=== PATIENT | male | born 1940 | race Caucasian/White ===

== ENCOUNTER 2019-07-11 16:41 | Outpatient (CLI) | payer MEDICARE | END 2019-07-11 16:42 | disposition critical access hospital (66) | LOC: EMS 16:41 | PROVIDERS: ATTEND Surgery | DX: R53.1 Weakness (principal); R42 Dizziness and giddiness | CPT/HCPCS: A0425; A0427 ==

== ENCOUNTER 2019-07-11 16:58 | Inpatient (IN) | payer MEDICARE ==
--- NOTE | 2019-07-11 17:09 | ED Physician Documentation ---
PD HPI ALTERED MENTAL STATUS - Stated complaint Stated Complaint: MED REACTION - History obtained from History obtained from: Patient, EMS (Some the history is limited because the patient is mildly altered. I did get some history from paramedics as well. Reportedly 3 days ago he was put on Xanax. He is been on it before without issue, but it spent a long time. He does not know what dose he was put on. He does not know why he was put back on it. He was taking it scheduled, not as needed. Starting her and then he started to become altered with slurred speech. No reported fevers. The dose was cut in half by his significant other who is not at the hospital on his arrival. That did not improve his mental status.) Review of Systems Constitutional: denies: Fever, Chills Cardiac: denies: Chest pain / pressure, Palpitations Respiratory: denies: Dyspnea, Cough GI: reports: Constipation (Last BM yesterday). denies: Abdominal Pain, Nausea, Vomiting PD PAST MEDICAL HISTORY - Past Medical History Past Medical History: Yes Cardiovascular: Other (pacemaker) - Present Medications Home Medications: Ambulatory Orders Medication Instructions Recorded Confirmed ALPRAZolam [Alprazolam] 1 mg PO 07/11/19 07/11/19 - Allergies Allergies/Adverse Reactions: Allergies Allergy/AdvReac Type Severity Reaction Status Date / Time No Known Drug Allergies Allergy Verified 07/11/19 17:09 - Living Situation Living Arrangement: reports: At home - Social History Does the pt drink ETOH?: No Does the pt have substance abuse?: No - Family History Family history: reports: Non contributory PD ED PE NORMAL - Vitals Vital signs reviewed: Yes - General General: No acute distress, Well developed/nourished, Other (Slow slurred speech, mildly confused) - HEENT HEENT: Other (There is just a very vague suggestion that his right eye does not abduct quite right but he denies diplopia on rightward gaze. No obvious cranial neuropathy.) - Neck Neck: Supple, no meningeal sign, No bony TTP - Cardiac Cardiac: RRR, No murmur - Respiratory Respiratory: No respiratory distress, Clear bilaterally - Abdomen Abdomen: Soft, Non tender - Back Back: No CVA TTP, No spinal TTP - Derm Derm: Normal color, Warm and dry - Extremities Extremities: No edema, No calf tenderness / cord - Neuro Neuro: paleologist 2-12 intact Eye Opening: Spontaneous Motor: Obeys Commands Verbal: Confused GCS Score: 14 - Psych Psych: Normal mood, Normal affect Results - Vitals Vitals: Vital Signs - 24 hr 07/11/19 07/11/19 07/11/19 17:02 17:58 18:07 Temperature 36.2 C L Heart Rate 75 55 L 55 L Respiratory 18 13 14 Rate Blood Pressure 129/77 132/72 H 116/68 O2 Saturation 98 95 95 07/11/19 19:04 Temperature 36.7 C Heart Rate 56 L Respiratory 15 Rate Blood Pressure 126/79 O2 Saturation 98 Oxygen O2 Source Room air - Labs Labs: Laboratory Tests 07/11/19 07/11/19 07/11/19 17:17 17:17 17:17 WBC 6.5 RBC 4.40 L Hgb 14.4 Hct 42.9 MCV 97.5 H MCH 32.7 H MCHC 33.6 RDW 12.2 Plt Count 162 MPV 9.6 Neut # (Auto) 4.8 Lymph # (Auto) 1.1 L Mchenry # (Auto) 0.5 Eos # (Auto) 0.1 Baso # (Auto) 0.0 Absolute Nucleated RBC 0.00 Nucleated RBC % 0.0 Sodium 142 Potassium 4.4 Chloride 104 Carbon Dioxide 29 Anion Gap 9.0 BUN 22 H Creatinine 1.3 H Estimated GFR (MDRD) 53 L Glucose 132 H Calcium 8.7 Total Bilirubin 0.5 AST 19 ALT 15 Alkaline Phosphatase 52 Total Creatine Kinase 59 Total Protein 6.5 L Albumin 3.5 Globulin 3.0 Albumin/Globulin Ratio 1.2 Lipase 28 TSH 1.74 Salicylates < 6.0 Urine Opiates Screen Ur Oxycodone Screen Urine Methadone Screen Ur Propoxyphene Screen Acetaminophen < 10 L Ur Barbiturates Screen Ur Tricyclics Screen Ur Phencyclidine Scrn Ur Amphetamine Screen U Methamphetamines Scrn U Benzodiazepines Scrn Urine Cocaine Screen U Cannabinoids Screen Ethyl Alcohol < 5.0 07/11/19 19:02 WBC RBC Hgb Hct MCV MCH MCHC RDW Plt Count MPV Neut # (Auto) Lymph # (Auto) Mchenry # (Auto) Eos # (Auto) Baso # (Auto) Absolute Nucleated RBC Nucleated RBC % Sodium Potassium Chloride Carbon Dioxide Anion Gap BUN Creatinine Estimated GFR (MDRD) Glucose Calcium Total Bilirubin AST ALT Alkaline Phosphatase Total Creatine Kinase Total Protein Albumin Globulin Albumin/Globulin Ratio Lipase TSH Salicylates Urine Opiates Screen NEGATIVE Ur Oxycodone Screen NEGATIVE Urine Methadone Screen NEGATIVE Ur Propoxyphene Screen NEGATIVE Acetaminophen Ur Barbiturates Screen NEGATIVE Ur Tricyclics Screen NEGATIVE Ur Phencyclidine Scrn NEGATIVE Ur Amphetamine Screen NEGATIVE U Methamphetamines Scrn NEGATIVE U Benzodiazepines Scrn POSITIVE H Urine Cocaine Screen NEGATIVE U Cannabinoids Screen NEGATIVE Ethyl Alcohol - Rads (name of study) CT Head Radiology: EMP read contemporaneously (normal) PD MEDICAL DECISION MAKING - ED course ED course: 78-year-old gentleman presents by ambulance for altered mental status. It was temporally related to restarting Xanax and this is probably causative. The remainder of his ED work-up was negative. He is persistently altered, and will require a night in the hospital to metabolize and to assess for other causes. I spoke with Dr. Leung for same at 7:30 PM. Departure - Departure Disposition: ED Place in Observation Clinical Impression: Altered mental status Qualifiers: Altered mental status type: delirium Qualified Code(s): R41.0 - Disorientation, unspecified Condition: Fair
[2019-07-11 17:22] LABS: BASOPHILS % (AUTO) 0.3 %; EOSINOPHILS # (AUTO) 0.1 10^3/uL (0.0-0.7); EOSINOPHILS % (AUTO) 1.7 %; HGB - HEMOGLOBIN 14.4 g/dL (14.0-18.0); LYMPHOCYTES # (AUTO) 1.1 10^3/uL (1.5-3.5); LYMPHOCYTES % (AUTO) 16.2 %; MEAN CORPUSCULAR HEMOGLOBIN 32.7 pg (27.0-31.0); MEAN CORPUSCULAR HGB CONC 33.6 g/dL (32.0-36.0); MEAN CORPUSCULAR VOLUME 97.5 fL (80.0-94.0); MEAN PLATELET VOLUME 9.6 fL (7.4-11.4); MONOCYTES # (AUTO) 0.5 10^3/uL (0.0-1.0); MONOCYTES % (AUTO) 7.4 %; NEUTROPHILS # (AUTO) 4.8 10^3/uL (1.5-6.6); NEUTROPHILS % (AUTO) 73.6 %; PLT - PLATELET COUNT 162 10^3/uL (130-450); RED CELL DISTRIBUTION WIDTH 12.2 % (12.0-15.0); WHITE BLOOD COUNT 6.5 x10^3/uL (4.8-10.8)
[2019-07-11 17:35] LABS: ACETAMINOPHEN < 10 ug/mL (10-30); ALBUMIN 3.5 g/dL (3.2-5.5); ALBUMIN/GLOBULIN RATIO 1.2 (1.0-2.2); ALKALINE PHOSPHATASE 52 IU/L (42-121); ALT ALANINE AMINOTRANSFERASE 15 IU/L (10-60); AST ASPARTATE AMINOTRANSFERASE 19 IU/L (10-42); BILIRUBIN,TOTAL 0.5 mg/dL (0.2-1.0); BUN - BLOOD UREA NITROGEN 22 mg/dL (6-20); CALCIUM 8.7 mg/dL (8.5-10.3); CARBON DIOXIDE - CO2 29 mmol/L (21-32); CHLORIDE 104 mmol/L (101-111); CK- CREATINE KINASE 59 IU/L (22-269); CREATININE 1.3 mg/dL (0.6-1.2); GFR - MDRD 53 (>89); GLUCOSE 132 mg/dL (70-100); LIPASE 28 U/L (22-51); SALICYLATE < 6.0 mg/dL; SODIUM 142 mmol/L (135-145); TOTAL PROTEIN 6.5 g/dL (6.7-8.2)
[2019-07-11] MEDS ORDERED: SODIUM CHLORIDE 0.9% 1,000 ML IV ONE (17:40)
--- NOTE | 2019-07-11 17:49 | CT Report ---
Reason: altered Procedure Date: 07/11/2019 Accession Number: [id number] / [id number] Procedure: CT - HEAD WO CPT Code: FULL RESULT: EXAM: CT HEAD EXAM DATE: 07/11/2019 05:33 PM. CLINICAL HISTORY: Altered. COMPARISON: None. TECHNIQUE: Multiaxial CT images were obtained from the foramen magnum to the vertex. Reformats: Sagittal and coronal. IV contrast: None. In accordance with CT protocol optimization, one or more of the following dose reduction techniques were utilized for this exam: automated exposure control, adjustment of mA and/or KV based on patient size, or use of iterative reconstructive technique. FINDINGS: Parenchyma: No intraparenchymal hemorrhage. No evidence of mass, midline shift, or CT findings of infarction. Tovar-white differentiation is distinct. Extraaxial Spaces: Normal for age. No subdural or epidural collections identified. Ventricles: Normal in size and position. Sinuses and Orbits: Imaged paranasal sinuses, orbits, and mastoids show no significant abnormality. Bones: No evidence of fracture or calvarial defect. Other: None. IMPRESSION: No acute intracranial abnormality. RADIA
[2019-07-11 19:08] LABS: MUDS CUTOFF CONCENTRATIONS CUTOFF CONC BELOW:
[2019-07-11 19:20] LABS: AMPHETAMINE SCREEN,URINE NEGATIVE (NEGATIVE); BENZODIAZEPINES SCREEN, URINE POSITIVE (NEGATIVE); COCAINE SCREEN URINE NEGATIVE (NEGATIVE); METHAMPHETAMINES SCREEN, URINE NEGATIVE (NEGATIVE); OPIATE SCREEN, URINE NEGATIVE (NEGATIVE)
[2019-07-11 19:21] LABS: METHADONE SCREEN, URINE NEGATIVE (NEGATIVE); OXYCODONE SCREEN, URINE NEGATIVE (NEGATIVE); PROPOXYPHENE SCREEN, URINE NEGATIVE (NEGATIVE); TRICYCLIC ANTIDEPRESSANT,URINE NEGATIVE (NEGATIVE)
[2019-07-11] MEDS ORDERED: ACETAMINOPHEN 325 MG TABLET PO PRN (20:05)
[2019-07-11 20:21] LABS: INR 1.2 (0.8-1.2); PT - PROTHROMBIN TIME 13.1 secs (9.9-12.6)
[2019-07-11] MEDS ORDERED: ASPIRIN 325 MG TABLET PO SCH (21:00)
[2019-07-11] MEDS: SODIUM CHLORIDE 0.9% 1,000 ML IV SCH (21:14)
[2019-07-11] MEDS: SODIUM CHLORIDE FLUSH 0.9% 10 ML SYRINGE IVP PRN (21:14)
[2019-07-11] MEDS: HEPARIN 5,000 UNIT/ML VIAL SUBQ SCH (21:24)
[2019-07-11] MEDS: ATORVASTATIN 40 MG TABLET PO SCH (21:27)
--- NOTE | 2019-07-11 22:14 | HISTORY & PHYSICAL EXAMINATION ---
Chief Complaint - Chief Complaint Chief Complaint: Confusion History of Present Illness - Admitted From Admitted From:: Home - History Obtained From Records Reviewed: Yes History obtained from: Patient, ER Physician Exam Limitations: Change in mental status - History of Present Illness HPI Comment/Other: This is a 78 year old male with unknown past medical history except for the fact that he has a pacemaker who presents from home via EMS because of confusion over the last couple of days. History is limited from the patient due to his change in mental status. He states he was started on Xanax three days ago and since th at time he has felt confused and has had slurred speech. His significant other decreased the dose to half without improvement in his mental status. The patient is not sure why he was started on Xanax but states he was on it years ago without problems at that time. He denies any complaints except for associated slurred speech. He also complains of weakness. Reports no fevers, numbness, chest pain, dyspnea. He does report poor oral intake over the last few days. He reports taking a few other medications but cannot recall what they are. He does not know his pharmacy. He does not know his medical history except for that he has a pacemaker that was placed about 5 years ago. He knows that the month is july and that yesterday was but he cannot recall the year. He tells me he lives an hour away but then when asked again, he states he is not sure and that he is confused at this time. He does not have his ID on him. In the ER, his vitals were unremarkable. Labs revealed an elevated creatinine of 1.3. Urine toxicology was positive for benzodiazepines. Alcohol, tylenol, and salicylates were negative. CT head in the ER was unremarkable. He will be admitted under observation for further management. History - Past Medical History Cardiovascular: reports: Other (Pacemaker in place) - Past Surgical History Cardiovascular: reports: Pacemaker - Family & Social History Family History Comment/Other: Denies a family history although unclear how accurate this is given his mental status change. Living arrangement: At home Living Situation: With spouse/s.o. Social History Notes: He reports living with his significant other (Kelly) and that he lives one hour away. When asked where Kelly lives, he states he is not sure and that she is currently moving. Meds/Allgy - Home Medications Home Medications: Ambulatory Orders Medication Instructions Recorded Confirmed ALPRAZolam [Alprazolam] 1 mg PO 07/11/19 07/11/19 - Allergies Allergies/Adverse Reactions: Allergies Allergy/AdvReac Type Severity Reaction Status Date / Time No Known Drug Allergies Allergy Verified 07/11/19 17:09 Review of Systems - Constitutional Constitutional: reports: Weakness, Poor appetite. denies: Fatigue, Fever, Chills - Eyes Eyes: denies: Vision loss, Dipolpia - Cardiovascular Cariovascular: denies: Chest pain - Respiratory Respiratory: denies: SOB at rest, SOB with exertion - Gastrointestinal Gastrointestinal: denies: Abdominal pain, Nausea, Vomiting - Neurological Neurological: reports: General weakness, Slurred speech, Other (Confusion). denies: Focal weakness, Numbness - All Other Systems All Other Systems: reports: Reviewed and negative - Other Findings Other Findings: He does have altered mental status and his ROS may not be accurate. Prior Level of Functionality: Reports being independent with ADL's. Exam - Vital Signs Reviewed Vital Signs: Yes Vital Signs: Vital Signs x48h Temp Pulse Pulse Resp BP BP Pulse Ox 07/11/19 20:36 36.6 C 60 15 136/77 H 99 07/11/19 20:02 68 18 130/81 H 97 07/11/19 19:04 36.7 C 56 L 15 126/79 98 07/11/19 18:07 55 L 14 116/68 95 07/11/19 17:58 55 L 13 132/72 H 95 07/11/19 17:02 36.2 C L 75 18 129/77 98 - Physical Exam General Appearance: positive: No acute distress, Alert Eyes Bilateral: positive: PERRL, Conjunctivae nml Respiratory: positive: No respiratory distress. negative: Wheezes, Rales, Rhonchi Cardiovascular: positive: Regular rate & rhythm, No murmur. negative: Systolic murmur, Diastolic murmur Abdomen: positive: Non-tender, No distention. negative: Guarding, Rebound Skin: positive: No rash, Warm, Dry Extremities: positive: Non-tender Neurologic/Psychiatric: positive: Motor nml, Sensation nml, Facial droop (Right sided facial droop.), Slurred/abnml speech, Other (Facial sensation in tact. No tongue deviation. 5/5 motor strength in all four extremities. No sesonary deficit.). negative: Disoriented to person, Disoriented to place, Disoriented to time Conclusion/Plan - Problem List (1) Altered mental status Conclusion/Plan: The etiology of his altered mental status may be the use of Xanax as his symptoms started after initiation of the drug. He does have slurred speech and slight right sided facial droop on exam so TIA/Stroke is also a differential. Rest of his workup has been unremarkable including labs and imaging. - Will administer 325mg Aspirin and Lipitor 80mg today as this may be a TIA/CVA - IV hydration - Hold Xanax and avoid medications that can cause further delirium - Ideally, we would obtain an MRI to rule out stroke but it appears his pacemaker is not MRI compatible - Will consider repeating a CT head tomorrow to evaluate for possible evidence of ischemic CVA - Neurochecks - Will attempt to obtain collateral information from significant other Qualifiers: Altered mental status type: delirium Qualified Code(s): R41.0 - Disorientation, unspecified (2) Acute kidney injury Conclusion/Plan: His creatinine is elevated at 1.3 and this may represent acute kidney injury or this could be his baseline as there are no prior labs to compare to. - Will hydrate with IV fluids - Check BMP in AM - Monitor urine output (3) Pacemaker Conclusion/Plan: He has a pacemaker in place ([employer] [id number]). The indication for the pacemaker is not clear and patient is unable to give history. Atrial paced on telemetry. - Monitor on telemetry - Lab Results Lab results reviewed: Yes Kenyon Bones: 07/11/19 17:17 07/11/19 17:17 - Diagnostic Imaging Results Diagnostic Imaging Results: positive: Final report reviewed - EKG Results EKG Interpreted Independently: Yes EKG Comparison: No prior EKG EKG Findings: Bradycardia without ST segment changes. Atrial paced rhythm on telemetry. Core Measures - Anticipated LOS I expect patient to be DC'd or transferred within 96 hours.: Yes - Issues Hospital Issues and Management Plan: Altered mental status. TIA/CVA workup. - DVT/VTE - Prophylaxis VTE/DVT Device ordered at admit?: Yes VTE/DVT Prophylaxis med ordered at admit?: Yes
[2019-07-12] MEDS: SODIUM CHLORIDE FLUSH 0.9% 10 ML SYRINGE IVP SCH ×3 (00:26→16:57)
[2019-07-12 05:25] LABS: BASOPHILS % (AUTO) 0.3 %; EOSINOPHILS # (AUTO) 0.2 10^3/uL (0.0-0.7); EOSINOPHILS % (AUTO) 2.2 %; LYMPHOCYTES # (AUTO) 1.4 10^3/uL (1.5-3.5); LYMPHOCYTES % (AUTO) 20.7 %; MEAN CORPUSCULAR HEMOGLOBIN 32.7 pg (27.0-31.0); MEAN CORPUSCULAR HGB CONC 33.5 g/dL (32.0-36.0); MEAN CORPUSCULAR VOLUME 97.5 fL (80.0-94.0); MEAN PLATELET VOLUME 9.9 fL (7.4-11.4); MONOCYTES # (AUTO) 0.7 10^3/uL (0.0-1.0); MONOCYTES % (AUTO) 10.8 %; NEUTROPHILS # (AUTO) 4.4 10^3/uL (1.5-6.6); NEUTROPHILS % (AUTO) 65.4 %; PLT - PLATELET COUNT 139 10^3/uL (130-450); RED BLOOD COUNT 3.98 10^6/uL (4.70-6.10); RED CELL DISTRIBUTION WIDTH 12.3 % (12.0-15.0); WHITE BLOOD COUNT 6.7 x10^3/uL (4.8-10.8)
[2019-07-12 05:39] LABS: CALCIUM 8.3 mg/dL (8.5-10.3); CREATININE 1.3 mg/dL (0.6-1.2); MAGNESIUM 2.1 mg/dL (1.7-2.8); PHOSPHORUS 3.1 mg/dL (2.5-4.6)
[2019-07-12] MEDS: SODIUM CHLORIDE 0.9% 1,000 ML IV SCH ×2 (06:25→18:52)
[2019-07-12] MEDS: HEPARIN 5,000 UNIT/ML VIAL SUBQ SCH ×2 (08:27→20:40)
[2019-07-12] MEDS: ASPIRIN CHEW 81 MG TABLET PO SCH (08:27)
[2019-07-12 09:35] LABS: FOLATE 6.61 ng/mL (5.90 - >24.8)
[2019-07-12 15:53] LABS: MUDS CUTOFF CONCENTRATIONS CUTOFF CONC BELOW:
[2019-07-12 16:10] LABS: COCAINE SCREEN URINE NEGATIVE (NEGATIVE); METHAMPHETAMINES SCREEN, URINE NEGATIVE (NEGATIVE); OPIATE SCREEN, URINE NEGATIVE (NEGATIVE)
[2019-07-12 16:11] LABS: AMPHETAMINE SCREEN,URINE NEGATIVE (NEGATIVE); BENZODIAZEPINES SCREEN, URINE POSITIVE (NEGATIVE); METHADONE SCREEN, URINE NEGATIVE (NEGATIVE); OXYCODONE SCREEN, URINE NEGATIVE (NEGATIVE); PROPOXYPHENE SCREEN, URINE NEGATIVE (NEGATIVE); TRICYCLIC ANTIDEPRESSANT,URINE NEGATIVE (NEGATIVE)
--- NOTE | 2019-07-12 16:36 | Ultrasound Report ---
Reason: TIA Procedure Date: 07/12/2019 Accession Number: [id number] / [id number] Procedure: US - Carotid Doppler Complete CPT Code: FULL RESULT: EXAM: BILATERAL CAROTID AND VERTEBRAL ARTERY DUPLEX DOPPLER ULTRASOUND: EXAM DATE: 07/12/2019 03:51 PM CLINICAL HISTORY: Transient ischemic attack. COMPARISON: None. TECHNIQUE: Grayscale imaging, color Doppler, and duplex spectral Doppler were used to evaluate the carotid and vertebral arteries bilaterally. Static images were obtained. FINDINGS:Minimal plaquing at both bifurcations. Normal antegrade flow is present in bilateral vertebral arteries. VELOCITIES (cm/sec): RIGHT: CCA mid: PSV 86 cm/sec CCA dist: PSV 84 cm/sec ICA prox: PSV 68 cm/sec, EDV 7 cm/sec ICA mid: PSV 64 cm/sec, EDV 12 cm/sec ICA dist: PSV 74 cm/sec, EDV 16 cm/sec ECA: PSV 78 cm/sec Vert: PSV 75 cm/sec ICA/CCA: 0.79 LEFT: CCA mid: PSV 96 cm/sec CCA dist: PSV 83 cm/sec ICA prox: PSV 65 cm/sec, EDV 10 cm/sec ICA mid: PSV 68 cm/sec, EDV 17 cm/sec ICA dist: PSV 53 cm/sec, EDV 12 cm/sec ECA: PSV 68 cm/sec Vert: PSV 61 cm/sec ICA/CCA: 0.70 ICA diameter stenosis: Right: <50% by velocity and <70% by NASCET criteria. Left: <50% by velocity and <70% by NASCET criteria. IMPRESSION: 1. Minimal bilateral carotid artery plaquing. 2. In the right carotid artery there are no elevated carotid artery velocities to suggest hemodynamically significant stenosis. 3. In the left carotid artery there are no elevated carotid artery velocities to suggest hemodynamically significant stenosis. 4. Normal antegrade flow is present in bilateral vertebral arteries. General Recommendations: Stenosis =50% ICA - Follow-up ultrasound 6-12 months Stenosis <50% ICA - High Risk Patient with plaque - Follow-up ultrasound 1-2 years Normal Study but High Risk Patient - Follow-up ultrasound 3-5 years Management recommendations and diagnostic criteria are based on current IAC endorsed standards in Carotid Artery Stenosis: Grayscale and Doppler Ultrasound Diagnosis. Validated velocity measurements with angiographic measurements and velocity criteria are extrapolated from diameter data as defined by the Society of Radiologists in Ultrasound Consensus Conference Radiology 2003; 229;340-346. RADIA
--- NOTE | 2019-07-12 18:38 | PROVIDER PROGRESS NOTE ---
Assessment/Plan - Problem List (1) Adverse drug effect Assessment/Plan: His altered mentation has not changed all day: the significant-other, who was at his bedside with me (they have been together 15 years) says he is more confused than his usual mild dementia. The potential etiologies in his case, included acute CVA, dehydration, new infection or adverse medication effect. He did not have a CVA by CT scan, and he cannot have a brain MRI since he has a permanent pacemaker. He is getting saline iv hydration and will continue that overnight. There are no signs of infection; he is without a fever or elevated WBC. His MUDS screen was resent and results still show Benzodiazepines present, despite taking his last dose 4 and a half days ago. The significant other described to me that he has had many other meds, which were tried for treating agitated depression, that caused adverse side effects as well. (I entered those on his Allergy list). They were psych meds and mostly caused severe weakness to the point of near catatonia. Will recheck the MUDS screen regarding does he still have Benzo's in his system. Will consider a repeat CT head with contrast after 48 hours, to recheck for stroke in evolution. It is not safe to discharge him yet, thus I will change him to inpatient status and await test results. (2) Altered mental status Qualifiers: Altered mental status type: disorientation Qualified Code(s): R41.0 - Disorientation, unspecified Assessment/Plan: As above. Will order PT and OT evaluations, which may help pinpoint the neurologic problem. (3) Fall at home Assessment/Plan: The significant other gave me detailed past history today, which the admitting Cosmetics Counter Manager did not have: The last Xanax dose was given to him on 07/08/19, 2 hours later, he had more confusion, weakness and fell onto a lawn and garden, as he was getting out of a car. There was apparently no trauma. The significant other suspected that the fall was caused by the Xanax, and thought that he would get better after a day or two, which he did not, and that was the reason for the ER presentation. Since he was mildly dehydrated by labs, will check orthostatic VS. (4) Acute kidney injury Assessment/Plan: This was felt to be due to dehydration. IV fluids with saline continue at 100 cc/hr. 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 (6) Pacemaker Assessment/Plan: She describes visits to his Professional Fee Coder q6 mos. The last check was just 2 mos ago, and showed stable pacemaker function and about 8 years of battery life left. (7) Dementia Assessment/Plan: This is by history. He has never been seen by a Neurologist, apparently. 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 He has been tried on multiple psych agents, as described above. No agitation noted since here. - Current Meds Current Meds: Current Medications Generic Name Dose Route Start Last Admin Trade Name Freq PRN Reason Stop Dose Admin Aspirin 81 mg 07/12/19 09:00 07/12/19 08:27 St Med Aspirin PO 81 mg DAILY GET Administration Atorvastatin Calcium 80 mg 07/11/19 21:00 07/11/19 21:27 Lipitor PO 80 mg QPM GET Administration Heparin Sodium (Porcine) 5,000 unit 07/11/19 21:00 07/12/19 08:27 SUBQ 5,000 unit BID GET Administration Sodium Chloride 1,000 mls @ 100 mls/hr 07/11/19 21:00 07/12/19 16:53 Normal Saline 0.9% IV Infused .Q10H GET Infusion Sodium Chloride 10 ml 07/11/19 20:05 07/11/19 21:14 Normal Saline Flush 0.9% IVP 10 ml PRN PRN Administration NEEDED PER PROVIDER ORDERS Sodium Chloride 10 ml 07/12/19 01:00 07/12/19 16:57 Normal Saline Flush 0.9% IVP Not Given 0100,0900,1700 GET - Lab Result Fish Bone Diagrams: 07/12/19 05:10 07/12/19 05:10 - Additional Planning My Orders: My Active Orders 07/12/19 Evaluate and Treat OT [OT] Routine Evaluate and Treat PT [PT] Routine 07/12/19 11:45 Echo Complete w/Bubble Study [ECHO] Routine 07/12/19 12:27 FACTOR VIII ACTIVITY,CLOTTING [REFLAB] Urgent 07/12/19 18:30 Transfer [Admit \\ Transfer \\ Status] [RC] .ONCE Subjective - Subjective Patient Reports: Other ("Feels not right") Objective Vital Signs: Vital Signs - 24 hr 07/11/19 07/11/19 07/11/19 19:04 20:02 20:36 Temperature 36.7 C 36.6 C Heart Rate 56 L 68 Heart Rate [ 60 Brachial] Respiratory 15 18 15 Rate Blood Pressure 126/79 130/81 H Blood Pressure 136/77 H [Right Brachial artery] O2 Saturation 98 97 99 07/12/19 07/12/19 07/12/19 00:51 05:20 08:28 Temperature 36.6 C 36.6 C 37.0 C Heart Rate Heart Rate [ 63 61 51 L Brachial] Respiratory 16 16 15 Rate Blood Pressure Blood Pressure 122/65 126/66 121/52 L [Right Brachial artery] O2 Saturation 98 98 97 07/12/19 07/12/19 07/12/19 11:43 11:59 15:53 Temperature 37.0 C 36.7 C 36.7 C Heart Rate 51 L Heart Rate [ 52 L 49 L Brachial] Respiratory 15 16 16 Rate Blood Pressure Blood Pressure 137/66 H 132/64 H [Right Brachial artery] O2 Saturation 97 97 100 Oxygen O2 Source Room air I&O (Last 24 Hrs): Intake and Output Totals x24h 07/10/19 07/11/19 07/12/19 23:59 23:59 23:59 Intake Total 1280 2326.333 Output Total 150 1495 Balance 1130 831.333 General: Alert, Other (Disoriented to time and place, oriented to person.) HEENT: Atraumatic, Mucous membr. moist/pink Neck: Supple Neuro: Alert, Disoriented, Other (Flat affect and appears stiff (?Parkinsonian)) Cardiovascular: Regular rate, No murmurs Respiratory: No respiratory distress, Breath sounds nml Abdomen: Soft Extremities: No edema - Results Results: Laboratory Results WBC 6.7 x10^3/uL (4.8-10.8) 07/12/19 05:10 RBC 3.98 10^6/uL (4.70-6.10) L 07/12/19 05:10 Hgb 13.0 g/dL (14.0-18.0) L 07/12/19 05:10 Hct 38.8 % (42.0-52.0) L 07/12/19 05:10 MCV 97.5 fL (80.0-94.0) H 07/12/19 05:10 MCH 32.7 pg (27.0-31.0) H 07/12/19 05:10 MCHC 33.5 g/dL (32.0-36.0) 07/12/19 05:10 RDW 12.3 % (12.0-15.0) 07/12/19 05:10 Plt Count 139 10^3/uL (130-450) 07/12/19 05:10 MPV 9.9 fL (7.4-11.4) 07/12/19 05:10 Neut # (Auto) 4.4 10^3/uL (1.5-6.6) 07/12/19 05:10 Lymph # (Auto) 1.4 10^3/uL (1.5-3.5) L 07/12/19 05:10 [place] # (Auto) 0.7 10^3/uL (0.0-1.0) 07/12/19 05:10 Eos # (Auto) 0.2 10^3/uL (0.0-0.7) 07/12/19 05:10 Baso # (Auto) 0.0 10^3/uL (0.0-0.1) 07/12/19 05:10 Absolute Nucleated RBC 0.00 x10^3/uL 07/12/19 05:10 Nucleated RBC % 0.0 /100WBC 07/12/19 05:10 PT 13.1 secs (9.9-12.6) H 07/11/19 17:17 INR 1.2 (0.8-1.2) 07/11/19 17:17 Sodium 142 mmol/L (135-145) 07/12/19 05:10 Potassium 4.2 mmol/L (3.5-5.0) 07/12/19 05:10 Chloride 109 mmol/L (101-111) 07/12/19 05:10 Carbon Dioxide 30 mmol/L (21-32) 07/12/19 05:10 Anion Gap 3.0 (6-13) L 07/12/19 05:10 BUN 22 mg/dL (6-20) H 07/12/19 05:10 Creatinine 1.3 mg/dL (0.6-1.2) H 07/12/19 05:10 Estimated GFR (MDRD) 53 (>89) L 07/12/19 05:10 Glucose 93 mg/dL (70-100) 07/12/19 05:10 POC Whole Bld Glucose 87 mg/dL (70 - 100) 07/12/19 11:46 Calcium 8.3 mg/dL (8.5-10.3) L 07/12/19 05:10 Phosphorus 3.1 mg/dL (2.5-4.6) 07/12/19 05:10 Magnesium 2.1 mg/dL (1.7-2.8) 07/12/19 05:10 Total Bilirubin 0.5 mg/dL (0.2-1.0) 07/11/19 17:17 AST 19 IU/L (10-42) 07/11/19 17:17 ALT 15 IU/L (10-60) 07/11/19 17:17 Alkaline Phosphatase 52 IU/L (42-121) 07/11/19 17:17 Total Creatine Kinase 59 IU/L (22-269) 07/11/19 17:17 Total Protein 6.5 g/dL (6.7-8.2) L 07/11/19 17:17 Albumin 3.5 g/dL (3.2-5.5) 07/11/19 17:17 Globulin 3.0 g/dL (2.1-4.2) 07/11/19 17:17 Albumin/Globulin Ratio 1.2 (1.0-2.2) 07/11/19 17:17 Lipase 28 U/L (22-51) 07/11/19 17:17 Vitamin B12 170 pg/mL (180-914) L 07/12/19 08:50 Folate 6.61 ng/mL (5.90 - >24.8) 07/12/19 08:50 TSH 1.74 uIU/mL (0.34-5.60) 07/11/19 17:17 Salicylates < 6.0 mg/dL 07/11/19 17:17 Urine Opiates Screen NEGATIVE (NEGATIVE) 07/11/19 19:02 Ur Oxycodone Screen NEGATIVE (NEGATIVE) 07/11/19 19:02 Urine Methadone Screen NEGATIVE (NEGATIVE) 07/11/19 19:02 Ur Propoxyphene Screen NEGATIVE (NEGATIVE) 07/11/19 19:02 Acetaminophen < 10 ug/mL (10-30) L 07/11/19 17:17 Ur Barbiturates Screen NEGATIVE (NEGATIVE) 07/11/19 19:02 Ur Tricyclics Screen NEGATIVE (NEGATIVE) 07/11/19 19:02 Ur Phencyclidine Scrn NEGATIVE (NEGATIVE) 07/11/19 19:02 Ur Amphetamine Screen NEGATIVE (NEGATIVE) 07/11/19 19:02 U Methamphetamines Scrn NEGATIVE (NEGATIVE) 07/11/19 19:02 U Benzodiazepines Scrn POSITIVE (NEGATIVE) H 07/11/19 19:02 Urine Cocaine Screen NEGATIVE (NEGATIVE) 07/11/19 19:02 U Cannabinoids Screen NEGATIVE (NEGATIVE) 07/11/19 19:02 Ethyl Alcohol < 5.0 mg/dL 07/11/19 17:17
[2019-07-12] MEDS: SODIUM CHLORIDE FLUSH 0.9% 10 ML SYRINGE IVP PRN (20:41)
[2019-07-12] MEDS: ATORVASTATIN 40 MG TABLET PO SCH (20:41)
[2019-07-13] MEDS: SODIUM CHLORIDE FLUSH 0.9% 10 ML SYRINGE IVP SCH ×2 (00:14→09:06)
[2019-07-13] MEDS: SODIUM CHLORIDE 0.9% 1,000 ML IV SCH (05:24)
[2019-07-13] MEDS: ASPIRIN CHEW 81 MG TABLET PO SCH (09:36)
[2019-07-13] MEDS: HEPARIN 5,000 UNIT/ML VIAL SUBQ SCH (09:36)
--- NOTE | 2019-07-13 11:35 | Discharge Plan ---
Discharge Plan Problem Reviewed?: Yes Disposition: Home, Self Care Condition: Stable Diet: Regular Activity Restrictions: Activity as Tolerated Shower Restrictions: No Driving Restrictions: Yes Assistance Devices: Cane Health Concerns: Admitted with more confusion than his baseline and dehydration. No stroke was found. Plan of Treatment: Avoid generic Xanax. Resume prehospital medications, if any. See PCP and get referral to Neurology. Care Goals: Stabilization of strength and improved confusion. Assessment: The plan was explained to the DPOA. Additional Instructions or Follow Up instructions: Follow -up with PCP in [place]. If there are new or worsening symptoms, call PCP for advice or come to the ER. No Smoking: If you smoke, Please STOP! Call for help.
[2019-07-13 13:58] VITALS: BP 131/68
--- NOTE | 2019-07-15 18:11 | DISCHARGE SUMMARY ---
Discharge Summary Admit Date: 07/11/19 Discharge Date: 07/13/19 Discharging Provider: Dr Fabiana Salazar Primary Care Provider: Dr Rodrick Chao [place] Code Status: Attempt Resuscitation Condition at Discharge: Stable Discharge Disposition: 01 Home, Self Care - DIAGNOSES Admission Diagnoses: 1) Encephalopathy 2) Dementia 3) Fall at home Discharge Diagnoses with Status of Each Condition: See below - HPI History of Present Illness: From the admission H&P of Dr Abundio Del Valle: This is a 78 year old male with unknown past medical history except for the fact that he has a pacemaker who presents from home via EMS because of confusion over the last couple of days. History is limited from the patient due to his change in mental status. He states he was started on Xanax three days ago and since that time he has felt confused and has had slurred speech. His significant other decreased the dose to half without improvement in his mental status, this according to the history obtained by the ER doctor. The patient is not sure why he was started on Xanax but states he was on it years ago without problems at that time. He denies any complaints except for associated slurred speech. He also complains of weakness. Reports no fevers, numbness, chest pain, dyspnea. He does report poor oral intake over the last few days. He reports taking a few other medications but cannot recall what they are. He does not know his pharmacy. He does not know his medical history except for that he has a pacemaker that was placed about 5 years ago. He knows that the month is July and that yesterday was Day but he cannot recall the year. He tells me he lives [place] hour away but then when asked again, he states he is not sure and that "he is confused at this awilda"e. He does not have his ID on him. In the ER, his vitals were unremarkable. Labs revealed an elevated creatinine of 1.3. Urine toxicology was positive for benzodiazepines. Alcohol, tylenol, and salicylates were negative. CT head in the ER was unremarkable. He will be admitted under Observation for altered mental status and further management. - HOSPITAL COURSE Hospital Course: (1) Adverse drug effect The following day, his significant other and DPOA provided a detailed history: he has dementia and gets more confused with many medications, especially when he takes non-Sandoz brand Xanax, which is what happened. He took that 3 days before admission. His altered mentation, more confusion than his usual mild dementia, did not change even after 24 hours here and he was transitioned to a full Inpatient admission. The potential etiologies in his case, included acute CVA, dehydration, new infection or adverse medication effect. He did not have a CVA by CT scan, and he cannot have a brain MRI since he has a permanent pacemaker. He got saline iv hydration for 2 days. There were no signs of infection; he is without a fever or elevated WBC. His MUDS screen was resent and results still showed Benzodiazepines present, despite taking his last dose 4 and a half days previously. The significant other described to me that he has had many other meds, which were tried for treating agitated depression, that caused adverse side effects as well. (I entered those on his Allergy list). They were psych meds and mostly caused severe weakness to the point of near catatonia. By the 3rd day, he had some clearing of mentation and no slow speech, and was discharged home. (2) Altered mental status His head CT was unremarkable, Echo was essentially normal and carotid Doppler showed mild bilateral stenoses. The underlying dementia has not had a Neurology evaluation, as per the significant other. He had a PT evaluation and was walking independently. (3) Fall at home The significant other gave me detailed past history today, which the admitting Catering Attendant did not have: The last Xanax dose was given to him on 07/08/19, 2 hours later, he had more confusion, weakness and fell onto a lawn and garden, as he was getting out of a car. There was apparently no trauma. The significant other suspected that the fall was caused by the Xanax, and thought that he would get better after a day or two, which he did not, and that was the reason for the ER presentation. (4) Acute kidney injury This was felt to be due to dehydration. IV fluids with saline were administered for 2 days. His BUN/creat remained at 22/1.3 while here. 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 A Factor VIII level was drawn and was a send-out lab and was pending at the time of discharge. (6) Pacemaker The significant other described visits to his Court Reporter every 6 mos. The last check was just 2 mos ago, and showed stable pacemaker function and about 8 years of battery life left. (7) Dementia This diagnosis is by history from the significant other. He has never been seen by a Neurologist, apparently, which was advised to be done. 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 The significant other described to me that he has had many other meds, which were tried for treating agitated depression, that caused adverse side effects as well. (I entered those on his Allergy list). They were psych meds and mostly caused severe weakness to the point of near catatonia. No agitation was noted while here. - ALLERGIES Allergies/Adverse Reactions: Allergies Allergy/AdvReac Type Severity Reaction Status Date / Time aripiprazole [From Abilify] AdvReac Hallucinati Verified 07/12/19 11:44 ons fluoxetine [From Prozac] AdvReac Unknown Verified 07/12/19 11:42 lamotrigine AdvReac Unknown Verified 07/12/19 11:43 olanzapine [From Zyprexa] AdvReac Unknown Verified 07/12/19 11:41 trazodone AdvReac Dizziness Verified 07/12/19 11:44 zolpidem [From Ambien] AdvReac Dizziness Verified 07/12/19 11:44 - MEDICATIONS Home Medications: Ambulatory Orders Medication Instructions Recorded Confirmed ALPRAZolam [Alprazolam] 0.25 mg PO DAILY PRN #0 07/13/19 07/11/19 - PHYSICAL EXAM AT DISCHARGE General Appearance: positive: No acute distress, Alert Eyes Bilateral: positive: Normal inspection ENT: positive: ENT inspection nml, No signs of dehydration Neck: positive: Nml inspection, No JVD Respiratory: positive: No respiratory distress, Breath sounds nml Cardiovascular: positive: Regular rate & rhythm, No murmur Abdomen: positive: Non-tender, Nml bowel sounds, Other (Soft) Skin: positive: Other (Tanned) Extremities: positive: No pedal edema Neurologic/Psychiatric: positive: Other (Flat affect and rather stiff posture, no tremor, very poor memory, motor and sensoruy function grossly intact.) - LABS Result Diagrams: 07/12/19 05:10 07/12/19 05:10 - DIAGNOSTIC IMAGING Diagnostic Imaging Results: Final report reviewed - FOLLOW UP Follow Up: See PCP (in [place]) in 1-2 weeks in follow-up. A Neurology evaluation was advised. - TIME SPENT Time Spent in Discharge (Minutes): 50
== END 2019-07-13 12:00 | disposition home or self-care (01) | DRG 91 ==
LOC: ED 16:58 → MS2 20:05 → OBSVTOIN 07-12 18:30
PROVIDERS: ADMIT Internal Medicine; ATTEND Internal Medicine
DX: R41.0 Disorientation, unspecified (principal); G92 Toxic encephalopathy; R29.810 Facial weakness; R53.1 Weakness; R40.2412 Glasgow coma scale score 13-15, at arrival to emergency department; R79.89 Other specified abnormal findings of blood chemistry; D66 Hereditary factor VIII deficiency; N17.9 Acute kidney failure, unspecified; F32.2 Major depressive disorder, single episode, severe without psychotic features; T42.4X5A Adverse effect of benzodiazepines, initial encounter; Y92.009 Unspecified place in unspecified non-institutional (private) residence as the place of occurrence of the external cause; E86.0 Dehydration; R47.81 Slurred speech; I65.23 Occlusion and stenosis of bilateral carotid arteries; F03.90 Unspecified dementia, unspecified severity, without behavioral disturbance, psychotic disturbance, mood disturbance, and anxiety; Z95.0 Presence of cardiac pacemaker; Z91.81 History of falling; Z88.8 Allergy status to other drugs, medicaments and biological substances
CPT/HCPCS: 36415; 51701; 70450; 80048; 80053; 82550; 82607; 82746; 83690; 83735; 84100; 84443; 85025; 85240; 85610; 92610; 93005; 93306; 93880; 96360; 96361; 96372; 97161; 99284; 99285; A9270; G0378; 80306; 80307; 80320; 80329